=== PATIENT | male | born 1985 | race Hispanic/Latino ===

== ENCOUNTER 2021-03-05 18:41 | Emergency (ER) | payer SELFPAY ==
[~2021-03-05] VITALS: Ht 162.6 cm; Wt 68.0 kg
[2021-03-05 18:43] VITALS: BP 119/48
[2021-03-05] MEDS ORDERED: FLUORESCEIN SODIUM 1 STRIP STRIP ONE (19:00)
[2021-03-05] MEDS ORDERED: GENTAMICIN SULFATE 0.3% 5ML DROPS ONE (19:24)
[2021-03-05] MEDS ORDERED: ACETAMINOPHEN 500 MG TABLET ONE (19:25)
[2021-03-05] MEDS ORDERED: TETANUS/DIPHTHERIA TOXOID [ADULT] 0.5 ML VIAL IM ONE ×2 (19:26→19:30)
[2021-03-05] MEDS ORDERED: GENTAMICIN SULFATE 0.3% 5ML DROPS OS SCH (19:30)
[2021-03-05] MEDS ORDERED: ACETAMINOPHEN 500 MG TABLET PO ONE (19:30)
== END 2021-03-05 19:39 | disposition home or self-care (01) ==
LOC: EDH 18:41
DX: S05.02XA Injury of conjunctiva and corneal abrasion without foreign body, left eye, initial encounter (principal); X58.XXXA Exposure to other specified factors, initial encounter; Y93.89 Activity, other specified; Y92.89 Other specified places as the place of occurrence of the external cause; Y99.8 Other external cause status
CPT/HCPCS: 90471; 90714

== ENCOUNTER 2023-03-26 10:13 | Emergency (ER) | payer OTHER ==
[~2023-03-26] VITALS: Ht 157.5 cm; Wt 58.1 kg
[2023-03-26 11:16] LABS: BASOPHILS # (AUTO) 0.04 K/uL (0.00-0.20); BASOPHILS % (AUTO) 0.6 % (0.0-5.0); EOSINOPHILS # (AUTO) 0.08 K/uL (0.00-0.70); EOSINOPHILS % (AUTO) 1.1 % (0.0-8.0); HEMATOCRIT 45.3 % (42-54); IMMATURE GRANULOCYTE ABSOLUTE 0.01 K/uL (0-1); LYMPHOCYTES # (AUTO) 1.8 K/uL (1.0-4.8); LYMPHOCYTES % (AUTO) 25.3 % (21.0-51.0); MEAN CORPUSCULAR HEMOGLOBIN 32.3 pg (27.0-33.0); MONOCYTES # (AUTO) 0.5 K/uL (0.1-1.0); MONOCYTES % (AUTO) 6.8 % (3.0-13.0); NEUTROPHILS # (AUTO) 4.7 K/uL (1.8-7.7); NEUTROPHILS % (AUTO) 66.1 % (40.0-77.0); PLATELET COUNT (AUTO) 182 K/uL (130-400); RED BLOOD CELL COUNT(AUTO) 4.77 MIL/uL (4.50-6.20); RED CELL DISTRIBUTION WIDTH 13.2 % (11.0-15.5); WHITE BLOOD COUNT (AUTO) 7.1 K/uL (4.8-10.8)
[2023-03-26] MEDS ORDERED: KETOROLAC 60 MG VIAL (30MG/ML) IM ONE (11:21)
[2023-03-26 11:24] LABS: CREATININE 0.8 mg/dL (0.5-1.5); POTASSIUM 3.8 mmol/L (3.5-5.1)
[2023-03-26 11:29] LABS: ALBUMIN 3.9 g/dL (3.5-5.0); BILIRUBIN,TOTAL 0.4 mg/dL (0.2-1.0); TOTAL PROTEIN, SERUM 7.1 g/dL (6.0-8.3)
[2023-03-26] MEDS ORDERED: KETOROLAC 30MG VIAL (30MG/ML) IVP ONE (11:30)
[2023-03-26] MEDS ORDERED: 0.9%NACL 1000ML 1,000 ML IV ONE (11:30)
[2023-03-26] MEDS ORDERED: IOHEXOL-350 75 ML VIAL IV ONE (11:38)
[2023-03-26 11:43] LABS: APPEARANCE,URINE CLEAR (CLEAR); BILIRUBIN,URINE NEGATIVE (NEGATIVE); COLOR,URINE YELLOW (YELLOW); GLUCOSE, URINE (UA) NEGATIVE (NEGATIVE); KETONES,URINE 10 mg/dL (NEGATIVE); LEUKOCYTE ESTERASE ,URINE NEGATIVE Leu/uL (NEGATIVE); NITRATE,URINE NEGATIVE (NEGATIVE); OCCULT BLOOD,URINE NEGATIVE (NEGATIVE); PH,URINE 5.5 (5.0-8.0); PROTEIN,URINE 20 mg/dL (NEGATIVE); UROBILINOGEN,URINE 0.2 mg/dL (0.2-1.0)
[2023-03-26 11:54] LABS: ADD UA MICROSCOPIC YES
[2023-03-26 12:00] LABS: MUCUS,URINE MOD LPF (None Seen); SQUAMOUS EPITHELIAL CELL,UR RARE /HPF (0-2)
[2023-03-26 12:01] VITALS: BP 123/56; PULSE 60; RESP 17; O2SAT 100
[2023-03-26] MEDS ORDERED: ONDA4TAB10 PO (13:01)
[2023-03-26] MEDS ORDERED: FAMO-136 PO (13:01)
[2023-03-26] MEDS ORDERED: DICY20TA2 PO (13:01)
== END 2023-03-26 13:30 | disposition home or self-care (01) ==
LOC: EDH 10:13
DX: K52.9 Noninfective gastroenteritis and colitis, unspecified (principal); R10.31 Right lower quadrant pain; Z79.899 Other long term (current) drug therapy; Z98.890 Other specified postprocedural states; Z90.49 Acquired absence of other specified parts of digestive tract
CPT/HCPCS: 99285; 74177; 96374; 96361; 80053; 85025; 81001; 36415; J7030; J1885; Q9967

== ENCOUNTER 2023-10-21 17:29 | Emergency (ER) | payer BC, OTHER ==
[~2023-10-21] VITALS: Ht 152.4 cm; Wt 57.6 kg
[~2023-10-21 17:29] MED LIST: DICY20TA2 PO; FAMO-136 PO; ONDA4TAB10 PO
[2023-10-21] MEDS: KETOROLAC 60 MG VIAL (30MG/ML) IM ONE (20:01)
[2023-10-21] MEDS ORDERED: NAPR-1084 PO (20:01)
[2023-10-21 20:16] VITALS: BP 120/68; PULSE 70; RESP 18; O2SAT 98
== END 2023-10-21 20:21 | disposition home or self-care (01) ==
LOC: EDH 17:29
DX: R10.31 Right lower quadrant pain (principal); Z90.49 Acquired absence of other specified parts of digestive tract
CPT/HCPCS: 99285; 74176; 76882; 96372; J1885